=== PATIENT | female | born 1950 | race Caucasian/White ===

== ENCOUNTER 2018-01-24 10:12 | Day surgery (SDC) | payer OTHER | END 2018-01-24 15:45 | disposition home or self-care (01) | LOC: AMB-ENDOS 10:12 | DX: K59.09 Other constipation (principal); K64.8 Other hemorrhoids ==

== ENCOUNTER 2022-06-28 10:41 | Emergency (ER) | payer OTHER ==
[~2022-06-28] VITALS: Ht 165.1 cm; Wt 92.5 kg
[2022-06-28] MEDS ORDERED: CANDESARTAN CIL32 MG PO (10:54)
[2022-06-28] MEDS ORDERED: LEVOTHYROXINE112 MCG PO (10:54)
[2022-06-28] MEDS ORDERED: EZETIMIBE10 MG PO (10:55)
== END 2022-06-28 17:29 | disposition home or self-care (01) ==
LOC: ER 10:41
DX: R10.11 Right upper quadrant pain (principal); Z88.8 Allergy status to other drugs, medicaments and biological substances